=== PATIENT | female | born 1990 | race American Indian/Alaskan Native ===

== ENCOUNTER 2018-11-06 16:00 | Emergency (ER) | payer BC, OTHER ==
[2018-11-06 16:00] VITALS: BMI 18.8
[2018-11-06 16:15] VITALS: TEMP 98.3
[2018-11-06] MEDS ORDERED: Sodium Chloride 0.9% 1,000 ML IV ONE (16:34)
[2018-11-06] MEDS ORDERED: Sodium Chloride 0.9% 1,000 ML ONE (16:58)
[2018-11-06 17:02] LABS: BASO # 0.1 K/uL (0.0-0.2); BASO % 0.7 % (0.0-2.0); EOS # 0.1 K/uL (0.0-0.7); HEMOGLOBIN 13.6 g/dL (11.0-16.0); LYMPH # 2.2 K/uL (1.0-4.3); LYMPH % 24.5 % (20.0-40.0); MEAN CELL VOLUME 95.7 fL (81.0-99.0); MEAN CORPUSCULAR HEMOGLOBIN 31.8 pg (27.0-31.0); MEAN CORPUSCULAR HGB CONC 33.3 g/dL (33.0-37.0); NEUT # 5.7 K/uL (1.8-7.0); NEUT % 62.8 % (50.0-75.0); RBC 4.27 Mil/uL (3.80-5.20); RED CELL DISTRIBUTION WIDTH 13.2 % (11.5-14.5); WHITE BLOOD COUNT 9.1 K/uL (4.8-10.8)
[2018-11-06 17:17] LABS: HCG,QUALITATIVE URINE NEGATIVE (NEGATIVE)
[2018-11-06 17:23] LABS: SQUAMOUS EPITHIAL 1 /hpf (0-5); URINE BACTERIA RARE (<OCC); URINE BILIRUBIN NEGATIVE (NEGATIVE); URINE BLOOD NEGATIVE (NEGATIVE); URINE CLARITY Clear (Clear); URINE COLOR Yellow (YELLOW); URINE GLUCOSE (UA) NORMAL (Normal); URINE LEUKOCYTE ESTERASE NEG Leu/uL (Negative); URINE PROTEIN NEGATIVE (NEGATIVE); URINE UROBILINOGEN NORMAL mg/dL (0.2-1.0)
[2018-11-06 17:33] LABS: ALB/GLOB RATIO 1.4 (1.0-2.1); ALBUMIN 4.6 g/dL (3.5-5.0); ALT/SGPT 19 U/L (9-52); AST/SGOT 19 U/L (14-36); BLOOD UREA NITROGEN 13 mg/dL (7-17); CALCIUM 9.4 mg/dl (8.6-10.4); GFR NON-AFRICAN AMERICAN > 60; LIPASE 109 U/L (23-300)
--- NOTE | 2018-11-06 17:33 | C.PDOC ---
History Of Present Illness 28 y/o female, [employer] Employee, presents to the ER complaining of RLQ abdominal pain which has been present since yesterday. Patient states that she has associated nausea, however her appetite has decreased. Patient reports that her stool is softer. She notes that her LMP was on 10/19/18.Denies having fever, chills, vomiting, diarrhea, and constipation. Time Seen by Provider: 11/06/18 16:21 Chief Complaint (Nursing): Abdominal Pain History Per: Patient History/Exam Limitations: no limitations Onset/Duration Of Symptoms: Days Current Symptoms Are (Timing): Still Present Severity: Moderate Past Medical History Reviewed: Historical Data, Nursing Documentation, Vital Signs Vital Signs: Last Vital Signs Temp 98.3 F 11/06/18 16:12 Pulse 73 11/06/18 16:12 Resp 18 11/06/18 16:12 BP 105/73 11/06/18 16:12 Pulse Ox 100 11/06/18 16:12 - Medical History PMH: No Chronic Diseases Surgical History: No Surg Hx Family History: States: No Known Family Hx - Social History Hx Alcohol Use: Yes Hx Substance Use: No - Immunization History Hx Tetanus Toxoid Vaccination: No Hx Influenza Vaccination: No Hx Pneumococcal Vaccination: No Review Of Systems Except As Marked, All Systems Reviewed And Found Negative. Constitutional: Negative for: Fever, Chills Gastrointestinal: Positive for: Nausea, Abdominal Pain. Negative for: Vomiting, Diarrhea, Constipation Genitourinary: Negative for: Dysuria, Hematuria Physical Exam - Physical Exam Appears: Non-toxic, No Acute Distress Skin: Normal Color, Warm, Dry Head: Atraumatic, Normacephalic Eye(s): bilateral: Normal Inspection Nose: Normal Oral Mucosa: Moist Neck: Supple Chest: Symmetrical Cardiovascular: Rhythm Regular Respiratory: Normal Breath Sounds, No Rales, No Rhonchi, No Wheezing Gastrointestinal/Abdominal: Soft, Tenderness (mild RLQ tenderness), No Guarding, No Rebound Neurological/Psych: Oriented x3, Normal Speech ED Course And Treatment - Laboratory Results Result Diagrams: 11/06/18 16:55 11/06/18 16:55 Lab Interpretation: Normal Urine POC: Negative O2 Sat by Pulse Oximetry: 100 (RA) Pulse Ox Interpretation: Normal Progress Note: Treated with IVF NSS and toradol. On re-evaluation abdomen soft minimal tenderness right lower abdomen. Patient advised to follow up with her PMD. Return to ED if any increase symptoms Reassessment Condition: Improved Medical Decision Making Medical Decision Making: Plan: --Labs --UA --CT-Abd & Pelv. 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 - Scribe Statement The provider has reviewed the documentation as recorded by the Scribe Kathryn Sands Provider Attestation All medical record entries made by the Scribe were at my direction and personally dictated by me. I have reviewed the chart and agree that the record accurately reflects my personal performance of the history, physical exam, medical decision making, and the department course for this patient. I have also personally directed, reviewed, and agree with the discharge instructions and disposition.
[2018-11-06 18:32] VITALS: BP 97/61; PULSE 92; RESP 17
[2018-11-06 19:01] VITALS: O2SAT 100
--- NOTE | 2018-11-06 19:03 | CT ---
Date of service: 11/06/2018 PROCEDURE: CT Abdomen and Pelvis . HISTORY: Pain COMPARISON: None. TECHNIQUE: Contiguous axial images of the abdomen and pelvis. Oral contrast was administered. No IV contrast given. Coronal and Sagittal reformats generated. Radiation dose: Total exam DLP = 195.83 mGy-cm. This CT exam was performed using one or more of the following dose reduction techniques: Automated exposure control, adjustment of the mA and/or kV according to patient size, and/or use of iterative reconstruction technique. FINDINGS: Note that this examination is quite limited due to marked paucity of intraperitoneal and retroperitoneal fat as well as large amount of stool throughout the entire colon. All of these factors of result in lack of soft tissue contrast with limited evaluation of organs LOWER THORAX: Lung bases clear heart size normal. Tiny hiatal hernia. LIVER: Grossly unremarkable. No large hepatic lesion or ductal dilatation. GALLBLADDER AND BILE DUCTS: No obvious intraluminal gallbladder calculi PANCREAS: Unremarkable. No mass. No ductal dilatation. SPLEEN: Grossly unremarkable no splenomegaly. ADRENALS: Adrenal glands poorly delineated KIDNEYS AND URETERS: No obvious nephrolithiasis or hydronephrosis. BLADDER: The bladder incompletely distended. No evidence of intraluminal urinary bladder calculi.. REPRODUCTIVE: Uterus and adnexal structures poorly delineated APPENDIX: Appendix not visualized. BOWEL: Stomach appears partially distended with food debris liquid air. Very large amount of stool seen throughout the entire colon consistent with significant constipation. Poor visualization of the unopacified loops of small bowel PERITONEUM: No gross fluid collection. No free air. LYMPH NODES: Evaluation for adenopathy cannot be adequately made on this exam VASCULATURE: Unremarkable. No aortic aneurysm. No aortic atherosclerotic calcification or mural plaque present. BONES: No fracture or destructive lesion. OTHER FINDINGS: None. IMPRESSION: Extremely limited study due to paucity of intraperitoneal and retroperitoneal fat. Findings consistent with constipation Evaluation of the remaining solid organs is also quite limited Possibility of inflammatory process of bowel cannot be excluded and if there is any concern recommend repeat CT scan with oral and IV contrast material.
== END 2018-11-06 19:26 | disposition home or self-care (01) ==
LOC: C.ER 16:00
DX: R10.31 Right lower quadrant pain (principal)
CPT/HCPCS: 74176; 80053; 81001; 83690; 84703; 85025; 96360; 99284; J7030